=== PATIENT | female | born 1950 | race Caucasian/White ===

== ENCOUNTER 2020-04-05 19:45 | Emergency (ER) | payer BC, MEDICARE, SELFPAY ==
[~2020-04-05] VITALS: Ht 177.8 cm; Wt 94.9 kg
[2020-04-05] MEDS ORDERED: KETOROLAC 30 MG/1 ML IM ONE (21:00)
[2020-04-05] MEDS ORDERED: KETOROLAC 30 MG/1 ML ONE ×2 (21:01→21:05)
[2020-04-05 21:11] VITALS: BP 148/85
[2020-04-05] MEDS ORDERED: ONDANSETRON 2MG/ML, 2ML IVPush ONE (22:00)
[2020-04-05] MEDS ORDERED: MORPHINE SULFATE 4 MG/ML, 1ML IVPush ONE (22:00)
[2020-04-05 22:35] LABS: BASOPHILS # (AUTO) 0.07 x10^3/uL (0-0.1); BASOPHILS % (AUTO) 1 % (0-1); EOSINOPHILS # (AUTO) 0.17 x10^3/uL (0-0.4); EOSINOPHILS % (AUTO) 2 % (1-7); LYMPHOCYTES # (AUTO) 1.83 x10^3/uL (1-3.4); LYMPHOCYTES % (AUTO) 23 % (22-44); MD NO; MEAN CORPUSCULAR HEMOGLOBIN 28.9 pg (27.0-34.8); MEAN CORPUSCULAR HGB CONC 33.3 g/dL (32.4-35.8); MEAN CORPUSCULAR VOLUME 86.7 fL (80-100); MEAN PLATELET VOLUME 9.2 fL (7.4-10.4); MONOCYTES # (AUTO) 0.77 x10^3/uL (0.2-0.8); MONOCYTES % (AUTO) 10 % (2-9); NEUTROPHILS % (AUTO) 65 % (42-75); PLATELET COUNT 220 x10^3/uL (130-400); RED BLOOD COUNT 5.05 x10^6/uL (3.82-5.3); RED CELL DISTRIBUTION WIDTH 15.9 % (9.6-15.2)
[2020-04-05 22:46] LABS: ANION GAP 6 mmol/L (5-15); CALCIUM 9.6 mg/dL (8.5-10.1); CHLORIDE 101 mmol/L (98-107); CREATININE 0.93 mg/dL (0.55-1.02)
[2020-04-05] MEDS ORDERED: MORPHINE SULFATE 4 MG/ML, 1ML ONE (22:56)
[2020-04-05] MEDS ORDERED: ONDANSETRON 2MG/ML, 2ML ONE (22:56)
== END 2020-04-06 00:17 | disposition home or self-care (01) ==
LOC: ED 21:35
DX: H92.02 Otalgia, left ear (principal); R51 Headache; F17.200 Nicotine dependence, unspecified, uncomplicated; I10 Essential (primary) hypertension
CPT/HCPCS: 36415; 70450; 80048; 85025; 96372; 96374; 96375; 99285; J1885; J2270; J2405